=== PATIENT | male | born 1965 | race African-American/Black ===

== ENCOUNTER 2021-02-27 07:19 | Outpatient (CLI) | payer BC | END 2021-02-27 07:20 | disposition home or self-care (01) | LOC: BICULT 07:19 | PROVIDERS: ATTEND Internal Medicine Hematology & Oncology | DX: R16.1 Splenomegaly, not elsewhere classified (principal); B18.2 Chronic viral hepatitis C; D69.59 Other secondary thrombocytopenia; D72.818 Other decreased white blood cell count; R93.3 Abnormal findings on diagnostic imaging of other parts of digestive tract | CPT/HCPCS: 93975 ==

== ENCOUNTER 2021-04-23 | Day surgery (SDC) | payer BC | END 2021-04-23 13:45 | disposition home or self-care (01) | PROC: 0YU54JZ Supplement Right Inguinal Region with Synthetic Substitute, Percutaneous Endoscopic Approach (ICD-10-PCS; principal; 2021-04-23) ==

== ENCOUNTER 2021-08-06 16:52 | Emergency (ER) | payer BC ==
[2021-08-06] MEDS ORDERED: Bacitracin 1 PK ONE (17:16)
[2021-08-06] MEDS ORDERED: Lidocaine 1% w/Epinephrine 1:100K 20 ML VIAL ONE (17:16)
[2021-08-06] MEDS ORDERED: Boostrix 0.5 ML (Tdap) VIAL ONE (18:07)
== END 2021-08-06 18:30 | disposition home or self-care (01) ==
LOC: ERS 16:52
DX: S81.811A Laceration without foreign body, right lower leg, initial encounter (principal); W45.8XXA Other foreign body or object entering through skin, initial encounter; Z23 Encounter for immunization
CPT/HCPCS: 12001; 90471; 90715

== ENCOUNTER 2024-02-17 18:12 | Inpatient (IN) | payer BC, SELFPAY ==
[2024-02-17 20:58] VITALS: BMI 21.2
[2024-02-17] MEDS ORDERED: Ondansetron PF 4 MG/2 ML Vial IVP PRN (21:18)
[2024-02-17] MEDS ORDERED: Ondansetron ODT 4 MG TAB PO PRN (21:18)
[2024-02-17] MEDS ORDERED: Acetaminophen 650 MG Suppository PR PRN (21:18)
[2024-02-17] MEDS ORDERED: Acetaminophen 325 MG TAB PO PRN (21:18)
[2024-02-17 22:13] LABS: Hematocrit 17.3 % (42.0-52.0); Hemoglobin 5.6 g/dL (14.0-18.0); Mean Corpuscular HGB CONC 32.4 g/dL (32.0-36.0); Mean Corpuscular Hemoglobin 29.6 pg (27.0-31.0); Mean Corpuscular Volume 91.5 fL (78.0-98.0); Platelet Count 149 10x3/uL (130-400); RBC Distribution Width 15.9 % (11.5-14.5); Red Blood Cell (RBC) Count 1.89 mill/uL (4.70-6.10)
[2024-02-17] MEDS: Sodium Chloride 0.9% 1,000 ML IV SCH (22:15)
[2024-02-17 23:02] LABS: Anisocytosis SLIGHT = 6-15 cells HPF (0-5); Band 1 % (5-11); Eosinophils 4 % (0-10); Large Platelets 3.9 % (0-5); Lymphocytes 31 % (21-51); Macrocytosis SLIGHT = 6-15 cells HPF (0-5); Monocytes 10 % (0-10); Neutrophil 54 % (42-75); Platelet Adequacy Comment Platelets Normal; Polychromasia SLIGHT = 2-3 cells HPF (0-2); Smudge Cells 42.7 %; Stomatocytes SLIGHT = 2-5 cells HPF (0-1); Target Cells SLIGHT = 2-5 cells HPF (0-1)
[2024-02-18] MEDS: Octreotide Acetate 1,250 MCG in Sodium Chloride 0.9% 250 ML 250 ML IVPB SCH (01:59)
[2024-02-18] MEDS: Pantoprazole 80 MG in Sodium Chloride 0.9% 100 ML IVPB SCH (02:07)
[2024-02-18 04:50] LABS: Hematocrit 20.5 % (42.0-52.0); Hemoglobin 6.9 g/dL (14.0-18.0); Mean Corpuscular HGB CONC 33.7 g/dL (32.0-36.0); Mean Corpuscular Hemoglobin 30.3 pg (27.0-31.0); Mean Corpuscular Volume 89.9 fL (78.0-98.0); Mean Platelet Volume 9.1 fL (7.4-10.4); Platelet Count 147 10x3/uL (130-400); RBC Distribution Width 15.3 % (11.5-14.5); Red Blood Cell (RBC) Count 2.28 mill/uL (4.70-6.10)
[2024-02-18 05:13] LABS: Anion Gap 13 mmol/L (10-20); BUN (Urea Nitrogen) 14 mg/dL (8.4-25.7); Calc. Creatinine Clearance 91 mL/min (70-130); Calcium 8.1 mg/dL (7.8-10.44); Carbon Dioxide 19 mmol/L (22-29); Chloride 111 mmol/L (98-107); Estimated GFR 101; Glucose 59 mg/dL (70-105); Potassium 3.8 mmol/L (3.5-5.1); Sodium 139 mmol/L (136-145)
[2024-02-18] MEDS: Octreotide Acetate 50 MCG/ML AMP SLOW IVP SCH (06:00)
[2024-02-18 06:06] LABS: Anisocytosis MODERATE=16-30 cells HPF (0-5); Eosinophils 7 % (0-10); Hypochromia SLIGHT = 6-15 cells HPF (0-5); Lymphocytes 19 % (21-51); Macrocytosis SLIGHT = 6-15 cells HPF (0-5); Monocytes 13 % (0-10); Neutrophil 60 % (42-75); Platelet Adequacy Comment Platelets Normal; Polychromasia SLIGHT = 2-3 cells HPF (0-2); Smudge Cells 41.4 %
[2024-02-18] MEDS ORDERED: Pantoprazole 80 MG, Admixture Fee 1 EACH in Sodium Chloride 0.9% 100 ML IVPB SCH (07:00)
[2024-02-18] MEDS ORDERED: Lidocaine 1% PF 5 ML VIAL ONE (07:32)
[2024-02-18] MEDS ORDERED: PROPOFOL 40 ML ONE (07:32)
[2024-02-18 08:28] LABS: Hematocrit 20.6 % (42.0-52.0); Hemoglobin 6.8 g/dL (14.0-18.0)
[2024-02-18] MEDS ORDERED: Ondansetron PF 4 MG/2 ML Vial ONE (10:04)
[2024-02-18] MEDS ORDERED: Glycopyrrolate 0.2 MG/ML 5 ML SYRINGE ONE (10:04)
[2024-02-18] MEDS ORDERED: Dexamethasone 20 MG/5 ML VIAL ONE (10:04)
[2024-02-18] MEDS: Lactated Ringer's 1,000 ML IV SCH (13:17)
[2024-02-18 17:55] LABS: Hematocrit 26.7 % (42.0-52.0)
[2024-02-18] MEDS: cefTRIAXone\\ROCEPHIN 1 GM in Sodium Chloride 0.9% 100 ML IVPB SCH (20:28)
[2024-02-19 05:44] LABS: Phosphorus 3.1 mg/dL (2.3-4.7)
[2024-02-19 05:46] LABS: ALT (SGPT) 22 U/L (8-55); AST (SGOT) 68 U/L (5-34); Albumin 2.3 g/dL (3.5-5.0); Alkaline Phosphatase 50 U/L (40-110); Anion Gap 9 mmol/L (10-20); BUN (Urea Nitrogen) 12 mg/dL (8.4-25.7); Bilirubin, Total 1.3 mg/dL (0.2-1.2); Calc. Creatinine Clearance 85 mL/min (70-130); Calcium 8.3 mg/dL (7.8-10.44); Carbon Dioxide 21 mmol/L (22-29); Chloride 113 mmol/L (98-107); Estimated GFR 99; Globulin 3.7 g/dL (2.4-3.5); Glucose 114 mg/dL (70-105); Magnesium 1.8 mg/dL (1.6-2.6); Sodium 139 mmol/L (136-145)
[2024-02-19 06:08] LABS: #Basophils Less than 0.03 10x3/uL (0.0-0.2); #Eosinphils Less than 0.03 10x3/uL (0.0-0.7); %Basophils 0.2 % (0.0-1.0); %Lymphocytes 21.4 % (21.0-51.0); %Monocytes 17.7 % (0.0-10.0); %Neutrophils 60.5 % (42.0-75.0); Hemoglobin 7.7 g/dL (14.0-18.0); Mean Corpuscular HGB CONC 33.5 g/dL (32.0-36.0); Mean Corpuscular Hemoglobin 30.9 pg (27.0-31.0); Mean Corpuscular Volume 92.4 fL (78.0-98.0); Mean Platelet Volume 9.3 fL (7.4-10.4); Platelet Count 155 10x3/uL (130-400); RBC Distribution Width 15.3 % (11.5-14.5); Red Blood Cell (RBC) Count 2.49 mill/uL (4.70-6.10)
[2024-02-19] MEDS: Magnesium 2 GM/50 ML(in water) 2 GM in Premix 1 BAG IVPB SCH (10:08)
[2024-02-19] MEDS: Octreotide Acetate 1,250 MCG in Sodium Chloride 0.9% 250 ML 250 ML IVPB SCH (15:30)
[2024-02-19 17:46] LABS: Hematocrit 24.6 % (42.0-52.0); Hemoglobin 8.1 g/dL (14.0-18.0)
[2024-02-20 06:37] LABS: #Basophils Less than 0.03 10x3/uL (0.0-0.2); %Eosinophils 3.2 % (0.0-10.0); %Lymphocytes 34.3 % (21.0-51.0); %Monocytes 19.8 % (0.0-10.0); %Neutrophils 42.7 % (42.0-75.0); Hematocrit 23.6 % (42.0-52.0); Hemoglobin 7.7 g/dL (14.0-18.0); Mean Corpuscular HGB CONC 32.6 g/dL (32.0-36.0); Mean Corpuscular Hemoglobin 31.2 pg (27.0-31.0); Mean Corpuscular Volume 95.5 fL (78.0-98.0); Mean Platelet Volume 9.4 fL (7.4-10.4); Platelet Count 160 10x3/uL (130-400); RBC Distribution Width 15.9 % (11.5-14.5); Red Blood Cell (RBC) Count 2.47 mill/uL (4.70-6.10)
[2024-02-20 07:16] LABS: Anion Gap 10 mmol/L (10-20); BUN (Urea Nitrogen) 9 mg/dL (8.4-25.7); Calc. Creatinine Clearance 96 mL/min (70-130); Carbon Dioxide 22 mmol/L (22-29); Chloride 110 mmol/L (98-107); Estimated GFR 103; Glucose 100 mg/dL (70-105); Potassium 3.6 mmol/L (3.5-5.1); Sodium 138 mmol/L (136-145)
[2024-02-20 08:04] LABS: Calcium 8.1 mg/dL (7.8-10.44)
[2024-02-20] MEDS: Thiamine 100 MG TAB PO SCH (09:20)
[2024-02-20] MEDS: Folic Acid 1 MG TAB PO SCH (09:21)
[2024-02-20] MEDS: Pantoprazole 40 MG VIAL IVP SCH (09:21)
[2024-02-20] MEDS: Multivit, Therapeutic 1 TAB PO SCH (09:21)
[2024-02-20] MEDS: Sodium Ferric Gluconate 250 MG in Sodium Chloride 0.9% 250 ML 250 ML IVPB SCH (12:13)
[2024-02-20 13:24] LABS: Hematocrit 27.9 % (42.0-52.0); Hemoglobin 9.2 g/dL (14.0-18.0)
[2024-02-21 08:08] LABS: #Basophils Less than 0.03 10x3/uL (0.0-0.2); %Basophils 0.2 % (0.0-1.0); %Eosinophils 1.4 % (0.0-10.0); %Lymphocytes 22.9 % (21.0-51.0); %Monocytes 15.6 % (0.0-10.0); %Neutrophils 59.1 % (42.0-75.0); Anion Gap 14 mmol/L (10-20); BUN (Urea Nitrogen) 6 mg/dL (8.4-25.7); Calc. Creatinine Clearance 94 mL/min (70-130); Calcium 8.9 mg/dL (7.8-10.44); Carbon Dioxide 21 mmol/L (22-29); Chloride 105 mmol/L (98-107); Estimated GFR 102; Glucose 101 mg/dL (70-105); Hematocrit 27.3 % (42.0-52.0); Hemoglobin 8.9 g/dL (14.0-18.0); Mean Corpuscular HGB CONC 32.6 g/dL (32.0-36.0); Mean Corpuscular Hemoglobin 30.9 pg (27.0-31.0); Mean Corpuscular Volume 94.8 fL (78.0-98.0); Mean Platelet Volume 9.3 fL (7.4-10.4); Platelet Count 157 10x3/uL (130-400); Potassium 3.6 mmol/L (3.5-5.1); Red Blood Cell (RBC) Count 2.88 mill/uL (4.70-6.10); Sodium 136 mmol/L (136-145)
[2024-02-21] MEDS: Pantoprazole DR 40 MG TAB PO SCH (10:07)
[2024-02-21 12:09] VITALS: BP 116/64; TEMP 98.7
== END 2024-02-21 16:20 | disposition home or self-care (01) | DRG 432 ==
LOC: 2NO 19:58
PROVIDERS: ADMIT Internal Medicine; ATTEND Internal Medicine
PROC: 30233N1 Transfusion of Nonautologous Red Blood Cells into Peripheral Vein, Percutaneous Approach (ICD-10-PCS; 2024-02-17)
PROC: 06L38CZ Occlusion of Esophageal Vein with Extraluminal Device, Via Natural or Artificial Opening Endoscopic (ICD-10-PCS; principal; 2024-02-18)
DX: K70.30 Alcoholic cirrhosis of liver without ascites (principal); I85.11 Secondary esophageal varices with bleeding; D62 Acute posthemorrhagic anemia; G43.909 Migraine, unspecified, not intractable, without status migrainosus; F10.10 Alcohol abuse, uncomplicated; B18.2 Chronic viral hepatitis C; Z79.899 Other long term (current) drug therapy; Z98.890 Other specified postprocedural states
CPT/HCPCS: 36415; 36430; 76700; 80048; 80053; 82105; 83735; 84100; 85025; 86850; 86900; 86901; C9113; J0696; J1100; J2354; J2405; J2704; J2916; J3475; J3490; J7050; J7120; P9016

== ENCOUNTER 2024-03-10 09:17 | Inpatient (IN) | payer BC, OTHER ==
[2024-03-10 10:18] LABS: BHCG - Serum Negative; Pregs Control Background? CLEAR/WHITE (CLR/WHITE); Pregs Control Bar Appear? YES (CONTROL BAR)
[2024-03-10 10:24] LABS: ALT (SGPT) 41 U/L (8-55); AST (SGOT) 82 U/L (5-34); Albumin 2.4 g/dL (3.5-5.0); Alkaline Phosphatase 49 U/L (40-110); Anion Gap 11 mmol/L (10-20); BUN (Urea Nitrogen) 6 mg/dL (8.4-25.7); Bilirubin, Total 0.9 mg/dL (0.2-1.2); Calc. Creatinine Clearance 0 mL/min (70-130); Calcium 8.6 mg/dL (7.8-10.44); Carbon Dioxide 19 mmol/L (22-29); Chloride 109 mmol/L (98-107); Estimated GFR 104; Globulin 4.3 g/dL (2.4-3.5); Glucose 161 mg/dL (70-105); Hematocrit 17.1 % (42.0-52.0); Hemoglobin 5.4 g/dL (14.0-18.0); Mean Corpuscular HGB CONC 31.6 g/dL (32.0-36.0); Mean Corpuscular Hemoglobin 29.3 pg (27.0-31.0); Mean Corpuscular Volume 92.9 fL (78.0-98.0); Mean Platelet Volume 9.1 fL (7.4-10.4); Platelet Count 187 10x3/uL (130-400); Protein, Total 6.7 g/dL (6.0-8.3); Red Blood Cell (RBC) Count 1.84 mill/uL (4.70-6.10); Sodium 136 mmol/L (136-145)
[2024-03-10 10:51] LABS: Anisocytosis SLIGHT = 6-15 cells HPF (0-5); Eosinophils 5 % (0-10); Hypochromia SLIGHT = 6-15 cells HPF (0-5); Large Platelets 7.5 % (0-5); Lymphocytes 26 % (21-51); Microcytosis SLIGHT = 6-15 cells HPF (0-5); Monocytes 33 % (0-10); Neutrophil 36 % (42-75); Ovalocytes SLIGHT = 2-5 cells HPF (0-1); Platelet Adequacy Comment Platelets Normal; Polychromasia SLIGHT = 2-3 cells HPF (0-2); Smudge Cells 8.5 %; Target Cells SLIGHT = 2-5 cells HPF (0-1); Vacuoles SLIGHT
[2024-03-10 11:22] LABS: Magnesium 1.7 mg/dL (1.6-2.6)
[2024-03-10 11:34] LABS: INR-International Normal Ratio 1.5; PTT 33.8 sec (22.9-36.1); Prothrombin Time 18.4 sec (12.0-14.7)
[2024-03-10] MEDS ORDERED: Pantoprazole 40 MG VIAL ONE (12:06)
[2024-03-10] MEDS ORDERED: Potassium Chloride 20 MEQ TAB ONE (12:06)
[2024-03-10] MEDS ORDERED: Ondansetron PF 4 MG/2 ML Vial IVP PRN (13:19)
[2024-03-10] MEDS: Acetaminophen 325 MG TAB PO SCH (15:00)
[2024-03-10 15:53] VITALS: BMI 21.9
[2024-03-10] MEDS: Sodium Chloride 0.9% 1,000 ML IV SCH (17:49)
[2024-03-10] MEDS: Pantoprazole 40 MG VIAL IVP SCH (21:20)
[2024-03-11 00:27] LABS: Hematocrit 24.2 % (42.0-52.0); Hemoglobin 7.8 g/dL (14.0-18.0); Mean Corpuscular HGB CONC 32.2 g/dL (32.0-36.0); Mean Corpuscular Hemoglobin 30.1 pg (27.0-31.0); Mean Corpuscular Volume 93.4 fL (78.0-98.0); Mean Platelet Volume 9.1 fL (7.4-10.4); Platelet Count 187 10x3/uL (130-400); RBC Distribution Width 16.9 % (11.5-14.5); Red Blood Cell (RBC) Count 2.59 mill/uL (4.70-6.10)
[2024-03-11 00:58] LABS: Hypochromia SLIGHT = 6-15 cells HPF (0-5); Lymphocytes 21 % (21-51); Monocytes 10 % (0-10); Neutrophil 69 % (42-75); Platelet Adequacy Comment Platelets Normal; Polychromasia SLIGHT = 2-3 cells HPF (0-2)
[2024-03-11 04:56] LABS: Hematocrit 23.3 % (42.0-52.0); Hemoglobin 7.6 g/dL (14.0-18.0); Mean Corpuscular HGB CONC 32.6 g/dL (32.0-36.0); Mean Corpuscular Hemoglobin 30.2 pg (27.0-31.0); Mean Corpuscular Volume 92.5 fL (78.0-98.0); Mean Platelet Volume 9.3 fL (7.4-10.4); Platelet Count 197 10x3/uL (130-400); RBC Distribution Width 17.1 % (11.5-14.5); Red Blood Cell (RBC) Count 2.52 mill/uL (4.70-6.10)
[2024-03-11 05:21] LABS: Anisocytosis SLIGHT = 6-15 cells HPF (0-5); Band 1 % (5-11); Hypochromia SLIGHT = 6-15 cells HPF (0-5); Lymphocytes 24 % (21-51); Monocytes 12 % (0-10); Neutrophil 63 % (42-75); Nucleated RBC (Manual Ct) 1 % (0); Platelet Adequacy Comment Platelets Normal; Poikilocytosis MODERATE=16-30 cells HPF (0-5); Polychromasia MODERATE = 3-4 cells HPF (0-2)
[2024-03-11] MEDS ORDERED: PROPOFOL 20 ML ONE (08:05)
[2024-03-11] MEDS ORDERED: Acetaminophen 325 MG TAB PO PRN (09:20)
[2024-03-11] MEDS ORDERED: Magnesium 2 GM/50 ML(in water) 2 GM in Premix 1 BAG IVPB SCH (09:45)
[2024-03-11] MEDS ORDERED: Potassium Phosphate 30 MMOL in Sodium Chloride 0.9% 250 ML 250 ML IVPB SCH (10:00)
[2024-03-11] MEDS: Propranolol 10 MG TAB PO SCH (10:07)
[2024-03-11 11:12] VITALS: BP 111/69; TEMP 98
[2024-03-11 13:10] LABS: Anion Gap 9 mmol/L (10-20); BUN (Urea Nitrogen) 5 mg/dL (8.4-25.7); Calc. Creatinine Clearance 98 mL/min (70-130); Calcium 8.3 mg/dL (7.8-10.44); Carbon Dioxide 17 mmol/L (22-29); Chloride 114 mmol/L (98-107); Estimated GFR 102; Glucose 131 mg/dL (70-105); Magnesium 1.8 mg/dL (1.6-2.6); Phosphorus 2.3 mg/dL (2.3-4.7); Potassium 4.1 mmol/L (3.5-5.1); Sodium 136 mmol/L (136-145)
[2024-03-11] MEDS ORDERED: Propranolol 10 MG TAB PO SCH (21:00)
== END 2024-03-11 14:50 | disposition home or self-care (01) | DRG 812 ==
LOC: ERS 09:17 → 2NO 15:01
PROVIDERS: ADMIT Hospitalist; ATTEND Internal Medicine
PROC: 30233N1 Transfusion of Nonautologous Red Blood Cells into Peripheral Vein, Percutaneous Approach (ICD-10-PCS; 2024-03-10)
PROC: 0DJ08ZZ Inspection of Upper Intestinal Tract, Via Natural or Artificial Opening Endoscopic (ICD-10-PCS; principal; 2024-03-11)
DX: D64.9 Anemia, unspecified (principal); I85.10 Secondary esophageal varices without bleeding; K64.4 Residual hemorrhoidal skin tags; F10.10 Alcohol abuse, uncomplicated; G43.909 Migraine, unspecified, not intractable, without status migrainosus; B19.20 Unspecified viral hepatitis C without hepatic coma; K70.30 Alcoholic cirrhosis of liver without ascites; E87.6 Hypokalemia; K44.9 Diaphragmatic hernia without obstruction or gangrene; K31.89 Other diseases of stomach and duodenum; Z98.890 Other specified postprocedural states; Z79.899 Other long term (current) drug therapy
CPT/HCPCS: 36415; 36430; 80048; 80053; 82274; 83735; 84100; 84703; 85025; 85610; 85730; 86850; 86900; 86901; 94760; 96374; C9113; J2704; J7050; P9016